=== PATIENT | female | born 1960 | race Caucasian/White ===

== ENCOUNTER 2016-12-15 08:51 | Day surgery (SDC) | payer BC ==
--- NOTE | 2016-12-15 11:21 | Operative Note ---
Colonoscopy (Alex) Procedure date: 12/15/16 Date of : 60 Procedure:Colonoscopy Colonoscopy Indications: Mrs. Stacy is a 56-year-old female who is here for follow-up screening colonoscopy. She did have a colonoscopy 5.5 years ago and had no colon polyps and this examination was normal at that time. She does state that her maternal grandmother had colon cancer in her early 60s. The patient does have a history of irritable bowel syndrome with predominantly diarrhea but does have alternating constipation and diarrhea. She reports no bloating or gassiness. She reports no rectal bleeding, abdominal pain or unintentional weight loss. Performing Provider: Adrian Johnson MD Referrring Provider: Lon Alcantar M.D. Sedation: Fentanyl 200 mg IV/Versed 8 mg IV Procedure: Prior to the procedure, a history and physical exam was performed, and patient medications and allergies were reviewed. The risks and benefits of the procedure and the sedation options and risks were discussed with the patient. All questions were answered and informed consent was obtained. Patient identification and proposed procedure were verified by the physician and the nurse. The patient was placed in a left lateral decubitus position. Throughout the procedure, the patient's blood pressure, pulse, and oxygen saturations were monitored continuously. Findings: On digital rectal examination there was normal rectal tone. There were no external hemorrhoids. The colonoscope was introduced through the anal canal to the rectum and advanced to the cecum. The ileocecal valve and appendiceal orifice were identified. The scope was advanced a short distance into the ileum which appeared grossly normal. The scope was then withdrawn into the colon. The cecum, ascending and transverse colon and mucosa were grossly normal. There were mildly scattered diverticuli throughout the descending and sigmoid colon (LEFT colon). The rectum itself was normal. Upon retroflexion within the rectum there were grade 1 internal hemorrhoids. Impressions: 1. Very mild left-sided diverticulosis 2. Grade 1 internal hemorrhoids Recommendations: The patient will not require screening/surveillance colonoscopy again for 10 years by ACS guidelines. I would encourage fiber bulk supplementation and probiotic on a long-term daily maintenance basis. Complications: None EBL (ml): 0 at 1120
[2016-12-15 13:21] VITALS: BP 113/73
== END 2016-12-15 12:25 | disposition home or self-care (01) ==
LOC: SDC 08:51
PROVIDERS: Internal Medicine Gastroenterology
PROC: 0DJD8ZZ Inspection of Lower Intestinal Tract, Via Natural or Artificial Opening Endoscopic (ICD-10-PCS; principal; 2016-12-15 11:00)
DX: Z09 Encounter for follow-up examination after completed treatment for conditions other than malignant neoplasm (principal); Z80.0 Family history of malignant neoplasm of digestive organs; K58.2 Mixed irritable bowel syndrome; K57.30 Diverticulosis of large intestine without perforation or abscess without bleeding; K64.0 First degree hemorrhoids